=== PATIENT | female | born 1950 | race Caucasian/White ===

== ENCOUNTER 2020-05-18 12:10 | Day surgery (SDC) | payer MEDICARE, OTHER, MEDICAID, SELFPAY ==
[2020-05-12 12:35] VITALS: BMI 30.5
--- NOTE | 2020-05-16 14:49 | HO.ANESPROP2 ---
HPI - Anesthesia Eval Consult details Narrative: 69yo F for Upper Endoscopy and Colonoscopy [facility] Past Medical History Medical History Brain aneurysm Elevated cholesterol Fatty liver GERD (gastroesophageal reflux disease) Heme + stool HTN (hypertension) DINORA on CPAP Peripheral neuropathy Pre-diabetes Family History Family History Daughter Celiac disease Surgical History Surgical History History of augmentation mammoplasty History of cryosurgery History of pubovaginal sling Hx of colonoscopy Social History Social History Alcohol intake: never Smoking Status: Former smoker Smoking Quit Date: Use of substances other than those prescribed or required for medical reasons: No Advance Directives: No Advance Directives Information Provided: No Advance Directives on File: No Meds Allergies Allergy/AdvReac Type Severity Reaction Status Date / Time Sulfa (Sulfonamide Allergy Itching Verified 05/12/20 12:19 Antibiotics) Home Medications Medication Instructions Recorded Confirmed Last Taken Type Centrum Silver Women 1 tab PO DAILY 05/12/20 05/12/20 Unknown History atorvastatin 1 tab PO DAILY 05/12/20 05/12/20 Unknown History calcium carbonate-vitamin D3 1 tab PO BID 05/12/20 05/12/20 Unknown History [Caltrate with Vitamin D3] melatonin 10 mg PO BEDTIME 05/12/20 05/12/20 Unknown History metformin 500 mg PO BID 05/12/20 05/12/20 Unknown History nitroglycerin 1 tab SUBLINGUAL NEEDED 05/12/20 05/12/20 Unknown History omeprazole 1 cap PO DAILY 05/12/20 05/12/20 Unknown History Exam Exam Date and Time: May 16, 2020 1449 Height,Weight and Vital Signs: Height 5 ft 2 in Weight 75.75 kg Assessment and Plan Assessment Anesthesia Assessment: Chart Reviewed
[2020-05-18 12:53] VITALS: BMI 28.3
[2020-05-18 12:54] VITALS: BP 147/76; PULSE 86; RESP 16; TEMP 36.7; O2SAT 95
[2020-05-18 13:10] LABS: Glucose, Whole Blood 109 mg/dL (60-115)
[2020-05-18] MEDS: Lactated Ringers 1,000 ML 100 ML IVCONT (13:10)
--- NOTE | 2020-05-18 13:22 | HO.ANESPROP2 ---
[facility] Past Medical History Medical History Brain aneurysm Elevated cholesterol Fatty liver GERD (gastroesophageal reflux disease) Heme + stool HTN (hypertension) DINORA on CPAP Peripheral neuropathy Pre-diabetes Family History Family History Daughter Celiac disease Surgical History Surgical History History of augmentation mammoplasty History of cryosurgery History of pubovaginal sling Hx of colonoscopy Social History Social History Alcohol intake: never Smoking Status: Former smoker Smoking Quit Date: Use of substances other than those prescribed or required for medical reasons: No Advance Directives: No Advance Directives Information Provided: No Advance Directives on File: No Meds Allergies Allergy/AdvReac Type Severity Reaction Status Date / Time Sulfa (Sulfonamide Allergy Itching Verified 05/12/20 12:19 Antibiotics) Active Medications: Current Medications Generic Name Dose Route Start Last Admin Trade Name Freq PRN Reason Stop Dose Admin Lactated Ringer's 1,000 mls @ 100 mls/hr 05/18/20 10:45 05/18/20 13:10 Lr IVCONT 100 mls/hr .Q10H GREGORIO Administration Home Medications Medication Instructions Recorded Confirmed Last Taken Type atorvastatin 1 tab PO DAILY 05/12/20 05/12/20 Unknown History calcium carbonate-vitamin D3 1 tab PO BID 05/12/20 05/12/20 Unknown History [Caltrate with Vitamin D3] melatonin 10 mg PO BEDTIME 05/12/20 05/12/20 Unknown History metformin 500 mg PO BID 05/12/20 05/12/20 Unknown History jgonqrox-tpe-lyxb-FA-lutein 1 tab PO DAILY 05/12/20 05/12/20 Unknown History [Centrum Silver Women] nitroglycerin 1 tab SUBLINGUAL NEEDED 05/12/20 05/12/20 Unknown History omeprazole 1 cap PO DAILY 05/12/20 05/12/20 Unknown History Exam Exam Date and Time: May 18, 2020 1322 Height,Weight and Vital Signs: Height 5 ft 2 in Weight 70.42 kg Last Vital Signs Temp 98.1 F 05/18/20 12:54 Pulse 86 05/18/20 12:54 Resp 16 05/18/20 12:54 BP 147/76 H 05/18/20 12:54 Pulse Ox 95 05/18/20 12:54 Pertinent Lab Results Pertinent Lab Results: Laboratory Tests 05/18/20 13:00 POC Glucose 109 Airway Mallampati Class: II TM Dist: >3cm Neck ROM: Full Assessment and Plan Assessment Anesthesia Assessment: Anesthesia Plan Discussed and Chart Reviewed Final Anesthetic Review NPO: Yes ASA Class: III Final Preanesthetic Review: No Changes in Pt Med Stat, Meds/Allgs Chart Reviewed, Consent Obtained/Reviewed and Anes Risks/Benef Reviewed Patient Risk: Intermediate Procedure Risk: Low Assessment/Block/Sedation in SS: Assess/Block/Sedation-SS Anesthetic Plan Anesthetic Plan: MAC: Disposition: Standard PACU
--- NOTE | 2020-05-18 13:42 | MHC.SHP ---
Pre-Procedural Eval Section A The patient is an INPATIENT: No Changes since office visit: Yes Changes in Medication; No Cold of Flu in the past 2 weeks, No New Medical Problems and No Patient answered all questions The History & Physical has been completed within 30 days and I have reviewed it.: Yes Section B Chief Complaint: reflux disease,fecal abnormalities Allergies: Allergies Allergy/AdvReac Type Severity Reaction Status Date / Time Sulfa (Sulfonamide Allergy Itching Verified 05/12/20 12:19 Antibiotics) Plan I have reviewed the history and physical and performed a pertinent physical examination on my patient. No changes have occurred unless specified.
--- NOTE | 2020-05-18 14:27 | PM.OP ---
Brief Operative Note Date of Service: 05/18/20 Pre-op diagnosis: gerd, heme pos Post-op diagnosis: same (colon polyp) Procedure: egd colon Surgeon: Rock Malloy Anesthesia: MAC Estimated blood loss (mL): 5 Pathology: other (bxs duodenum antrum egj polyp) Condition: stable Disposition: PACU
[2020-05-18 14:28] VITALS: BP 107/59; PULSE 77; RESP 20; TEMP 36.3; O2SAT 98
[2020-05-18 14:43] VITALS: BP 129/64; PULSE 80; RESP 20; TEMP 36.3; O2SAT 96
--- NOTE | 2020-05-18 15:16 | OP_ITS ---
SURGEON: Rock Malloy MD INDICATIONS: Gastroesophageal reflux disease and Hemoccult-positive stools. PREOPERATIVE DIAGNOSIS: POSTOPERATIVE DIAGNOSIS: PROCEDURE PERFORMED: Upper endoscopy with biopsy, colonoscopy to the terminal ileum with biopsy. ESTIMATED BLOOD LOSS: COMPLICATIONS: ANESTHESIA: ASSISTANTS: SPECIMENS: MEDICATIONS: Monitored anesthesia care. DESCRIPTION OF PROCEDURE: History and physical performed. The risks and benefits of the procedure were explained to the patient. Informed consent was obtained. The patient was placed in left lateral decubitus position. A digital rectal exam was performed prior to the colonoscopy. First, the Olympus video gastroscope was introduced into the esophagus, stomach, and duodenum. Examination was performed and the scope was removed. She was repositioned for colonoscopy. The Olympus video colonoscope was introduced into the rectum and advanced to the cecum without difficulty. The cecum was identified by transillumination, palpation, and identification of ileocecal valve. Examination was performed and the scope was removed. She tolerated both procedures well and was taken to recovery area in stable condition. FINDINGS: UPPER ENDOSCOPY: Esophagus: There was a 1.5 cm area in the distal esophagus suspicious for Franco's esophagus. Biopsies were obtained. There were no raised lesions or ulcerated areas. Stomach: The stomach was normal. Antral biopsies were obtained. Duodenum: The bulb and second portion were normal. Biopsies were obtained from the second portion because of the patient's family history of celiac disease. COLONOSCOPY: The terminal ileum was normal. The visualized colonic mucosa was normal. In the cecum, was a less than 5 mm sessile polyp, which was removed using a biopsy forceps. No other polyps were identified. The quality of the prep was good. Retroflexed examination was normal. IMPRESSION: 1. Gastroesophageal reflux disease. 2. Colon polyp. RECOMMENDATION: Follow up the biopsy results. MD BERTA Odell/GATITO / [id number]
== END 2020-05-18 15:23 | disposition home or self-care (01) ==
PROVIDERS: PCP Internal Medicine; Visit Provider Internal Medicine Gastroenterology
PROC: (CPT 45380; principal; 2020-05-18 13:30)
DX: R19.5 Other fecal abnormalities (principal); Z86.010 Personal history of colon polyps; D12.0 Benign neoplasm of cecum; K21.9 Gastro-esophageal reflux disease without esophagitis; K76.0 Fatty (change of) liver, not elsewhere classified; I10 Essential (primary) hypertension; I67.1 Cerebral aneurysm, nonruptured; G47.33 Obstructive sleep apnea (adult) (pediatric); R73.03 Prediabetes; Z79.84 Long term (current) use of oral hypoglycemic drugs; Z99.89 Dependence on other enabling machines and devices; Z79.899 Other long term (current) drug therapy; Z87.891 Personal history of nicotine dependence; Z88.2 Allergy status to sulfonamides
CPT/HCPCS: 45380; 43239; 82947; 88305; 88342

== ENCOUNTER → 2022-08-23 12:25 | Outpatient (BNVA) | payer MEDICARE, OTHER, MEDICAID, SELFPAY | PROVIDERS: PCP Internal Medicine; Visit Provider Registered Nurse Diabetes Educator | DX: E11.9 Type 2 diabetes mellitus without complications (principal) | CPT/HCPCS: 99211 ==